=== PATIENT | male | born 1990 | race Caucasian/White ===

== ENCOUNTER 2020-01-31 21:57 | Emergency (ER) | payer OTHER ==
[~2020-01-31] VITALS: Ht 160 cm; Wt 68.0 kg
[2020-01-31] MEDS ORDERED: PANTOPRAZOLE SO40 MG ORAL (22:11)
[2020-01-31] MEDS ORDERED: AMLODIPINE BES2.5 MG ORAL (22:11)
[2020-01-31] MEDS ORDERED: FEXOFENADINE HC60 MG ORAL (22:11)
[2020-01-31] MEDS ORDERED: CLOPIDOGREL75 MG ORAL (22:11)
[2020-01-31] MEDS ORDERED: AZELASTINE137 MCG/0. NS (22:11)
--- NOTE | 2020-01-31 22:27 | Emergency Room Report ---
History of Present Illness General Chief Complaint: Abdominal Pain Source: Patient Present Illness HPI Patient is a 29-year-old male presents after increased upper abdominal pain. Reports having increased pain to his neck as well as generalized body aches and chills. Denies any vomiting or diarrhea. Reports having some constipation. Pain is primarily to the upper abdomen. denies prior surgery. States he had previously seen GI for this and was told that he should have an endoscopy performed. Denies any recent travel.Had not been having any bloody stools. Reports having some dysuria. Reports having family history of rheumatoid arthritis. 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 Allergies: Coded Allergies: No Known Allergies (Unverified , 01/31/20) COVID-19 Screening Contact w/high risk pt: No Experienced COVID-19 symptoms?: No COVID-19 Testing performed CONDOM[employer]UM PROPERTY MANAGER: No Patient History Past Medical History: see triage record Reviewed Nursing Documentation: PMH: Agreed; PSxH: Agreed Nursing Documentation-PMH Past Medical History: No Stated History Review of Systems Musculoskeletal: Reports: joint pain Skin: Reports: other - Intermittent skin color changes to the left hand for which he is taking anticoagulation Neurological: Reports: other - Cramping All Other Systems: negative except mentioned in HPI Physical Exam Vital Signs Date Time Temp Pulse Resp B/P (MAP) Pulse Ox O2 Delivery O2 Flow Rate FiO2 01/31/20 22:05 98.4 72 20 116/78 (91) 96 Room Air Sp02 EP Interpretation: reviewed, normal General Appearance: normal inspection, well appearing, no apparent distress, alert, GCS 15, non-toxic, thin Head: atraumatic ENT: normal ENT inspection, hearing grossly normal, normal voice Neck: normal inspection, full range of motion, supple, no bony tend Respiratory: normal inspection, lungs clear, normal breath sounds, no respiratory distress, no retraction, no wheezing Cardiovascular #1: regular rate, rhythm, no edema Gastrointestinal: normal inspection, normal bowel sounds, soft, no guarding, no hernia, tenderness - epiGastric tenderness Genitourinary: no CVA tenderness Musculoskeletal: normal inspection, back normal, normal range of motion Neurologic: alert, motor strength/tone normal, multiple resaw operator III-XII nml as tested, oriented x3, responsive, speech normal, normal inspection Psychiatric: normal inspection, judgement/insight normal, mood/affect normal Medical Decision Making Diagnostic Impression: Primary Impression: Hypokalemia Additional Impression: Nonspecific abdominal pain ER Course Patient presented for abdominal pain. Differential diagnosis include was not limited to pancreatitis, gastritis, colitis, peptic ulcer disease among others. Because of complexity of patient's case laboratory tests and imaging studies were ordered. Patient was noted to have some significant tenderness to the epigastric area. Laboratory testing did show some evidence of hypokalemia. CT of the abdomen pelvis was ordered with IV contrast. Patient refused CT imaging. Patient was advised that this may lead to delated diagnosis of certain abdominal problems. Patient states he will follow-up for endoscopy and has previously been advised to have endoscopy in the past. Patient was given a GI cocktail with some improvement in symptoms he was also given oral potassium. Patient was advised to return if he felt worse or had any worsening of condition. He is advised to follow-up with his primary care physician in 1 to 2 days for recheck. Patient states he had a negative coronavirus test recently. Does not appear to have evidence of coronavirus at this time. Does not have any evidence of focal weakness. Labs Test 01/31/20 22:25 White Blood Count 5.4 K/UL (4.8-10.8) Red Blood Count 4.95 M/UL (4.70-6.10) Hemoglobin 15.8 G/DL (14.2-18.0) Hematocrit 44.3 % (42.0-52.0) Mean Corpuscular Volume 90 FL (80-99) Mean Corpuscular Hemoglobin 31.9 PG (27.0-31.0) Mean Corpuscular Hemoglobin Concent 35.6 G/DL (32.0-36.0) Red Cell Distribution Width 11.3 % (11.6-14.8) Platelet Count 219 K/UL (150-450) Mean Platelet Volume 8.0 FL (6.5-10.1) Neutrophils (%) (Auto) 35.1 % (45.0-75.0) Lymphocytes (%) (Auto) 52.9 % (20.0-45.0) Monocytes (%) (Auto) 8.5 % (1.0-10.0) Eosinophils (%) (Auto) 1.8 % (0.0-3.0) Basophils (%) (Auto) 1.7 % (0.0-2.0) Sodium Level 141 MMOL/L (136-145) Potassium Level 3.1 MMOL/L (3.5-5.1) Chloride Level 105 MMOL/L (98-107) Carbon Dioxide Level 29 MMOL/L (21-32) Anion Gap 7 mmol/L (5-15) Blood Urea Nitrogen 10 mg/dL (7-18) Creatinine 1.2 MG/DL (0.55-1.30) Estimat Glomerular Filtration Rate > 60 mL/min (>60) Glucose Level 77 MG/DL (74-106) Calcium Level 8.8 MG/DL (8.5-10.1) Magnesium Level 2.2 MG/DL (1.8-2.4) Total Bilirubin 0.9 MG/DL (0.2-1.0) Aspartate Amino Transf (AST/SGOT) 20 U/L (15-37) Alanine Aminotransferase (ALT/SGPT) 42 U/L (12-78) Alkaline Phosphatase 69 U/L (46-116) C-Reactive Protein, Quantitative < 0.4 mg/dL (0.00-0.90) Total Protein 7.2 G/DL (6.4-8.2) Albumin 4.4 G/DL (3.4-5.0) Globulin 2.8 g/dL Albumin/Globulin Ratio 1.6 (1.0-2.7) Lipase 156 U/L (73-393) Thyroid Stimulating Hormone (TSH) 1.363 uiU/mL (0.358-3.740) Last Vital Signs Date Time Temp Pulse Resp B/P (MAP) Pulse Ox O2 Delivery O2 Flow Rate FiO2 01/31/20 22:05 98.4 72 20 116/78 (91) 96 Room Air Status: improved Disposition: HOME, SELF-CARE Condition: Stable Scripts Diclofenac Sodium (VOLTAREN) 100 Gm Gel..gram. 5 GM TP DAILY, #100 GM Prov: Iván Palacio MD 02/01/20 Dicyclomine Hcl* (DICYCLOMINE HCL*) 10 Mg Capsule 10 MG ORAL QID, #20 CAP Prov: Iván Palacio MD 02/01/20 Referrals: [facility],REFERRING (PCP) Iván Palacio MD Jan 31, 2020 22:27
[2020-01-31] MEDS ORDERED: Omnipaque-300 100ml vial INJ PRN (22:30)
[2020-01-31] MEDS ORDERED: Dicyclomine HCl 10mg/5ml oral soln ORAL ONE (22:30)
[2020-01-31 22:37] LABS: BASOPHILS % (AUTO) 1.7 % (0.0-2.0); EOSINOPHILS % (AUTO) 1.8 % (0.0-3.0); HEMATOCRIT 44.3 % (42.0-52.0); HEMOGLOBIN 15.8 G/DL (14.2-18.0); LYMPHOCYTES % (AUTO) 52.9 % (20.0-45.0); MEAN CORPUSCULAR VOLUME 90 FL (80-99); MONOCYTES % (AUTO) 8.5 % (1.0-10.0); NEUTROPHILS % (AUTO) 35.1 % (45.0-75.0); PLATELET COUNT 219 K/UL (150-450); RED BLOOD COUNT 4.95 M/UL (4.70-6.10); RED CELL DISTRIBUTION WIDTH 11.3 % (11.6-14.8); WHITE BLOOD COUNT 5.4 K/UL (4.8-10.8)
[2020-01-31 22:48] VITALS: BP 116/78
[2020-01-31 22:56] LABS: ANION GAP 7 mmol/L (5-15); BLOOD UREA NITROGEN 10 mg/dL (7-18); CALCIUM 8.8 MG/DL (8.5-10.1); CARBON DIOXIDE 29 MMOL/L (21-32); CHLORIDE 105 MMOL/L (98-107); CREATININE 1.2 MG/DL (0.55-1.30); POTASSIUM 3.1 MMOL/L (3.5-5.1); SODIUM 141 MMOL/L (136-145)
[2020-01-31 23:08] LABS: ALANINE AMINOTRANSFERASE 42 U/L (12-78); ALBUMIN 4.4 G/DL (3.4-5.0); ALBUMIN/GLOBULIN RATIO 1.6 (1.0-2.7); ALKALINE PHOSPHATASE 69 U/L (46-116); ASPARTATE AMINO TRANSFERASE 20 U/L (15-37); BILIRUBIN,TOTAL 0.9 MG/DL (0.2-1.0)
[2020-02-01] MEDS ORDERED: DICYCLOMINE HCL10 MG ORAL (00:03)
[2020-02-01] MEDS ORDERED: VOLTAREN100 G1 TP (00:05)
[2020-02-01 00:14] VITALS: BP 118/80
== END 2020-02-01 00:14 | disposition home or self-care (01) ==
LOC: EMR 22:18
DX: R10.10 Upper abdominal pain, unspecified (principal); E87.6 Hypokalemia; M54.2 Cervicalgia; K59.00 Constipation, unspecified; R30.0 Dysuria; Z79.01 Long term (current) use of anticoagulants
CPT/HCPCS: 36415; 80053; 83690; 83735; 84443; 85025; 86140; 99283; J8499

== ENCOUNTER 2020-02-01 08:59 | Emergency (ER) | payer OTHER ==
[~2020-02-01] VITALS: Ht 177.8 cm; Wt 59.0 kg
[~2020-02-01 08:59] MED LIST: AMLODIPINE BES2.5 MG ORAL; AZELASTINE137 MCG/0. NS; CLOPIDOGREL75 MG ORAL; DICYCLOMINE HCL10 MG ORAL; FEXOFENADINE HC60 MG ORAL; PANTOPRAZOLE SO40 MG ORAL; VOLTAREN100 G1 TP
[2020-02-01 09:20] VITALS: BP 120/80
[2020-02-01] MEDS ORDERED: Mylanta II UD 30ml ORAL ONE (09:30)
[2020-02-01] MEDS ORDERED: Lidocaine 2% Visc 15ml soln ORAL ONE (09:30)
[2020-02-01 09:52] LABS: APPEARANCE,URINE CLEAR; BASOPHILS % (AUTO) 1.9 % (0.0-2.0); BILIRUBIN, URINE NEGATIVE (NEGATIVE); EOSINOPHILS % (AUTO) 2.3 % (0.0-3.0); GLUCOSE, URINE (UA) NEGATIVE (NEGATIVE); HEMATOCRIT 44.4 % (42.0-52.0); HEMOGLOBIN 15.4 G/DL (14.2-18.0); KETONES,URINE 1+ (NEGATIVE); LEUKOCYTE ESTERASE ,URINE 1+ (NEGATIVE); LYMPHOCYTES % (AUTO) 36.3 % (20.0-45.0); MEAN CORPUSCULAR VOLUME 91 FL (80-99); MONOCYTES % (AUTO) 9.2 % (1.0-10.0); NEUTROPHILS % (AUTO) 50.4 % (45.0-75.0); NITRITE,URINE NEGATIVE (NEGATIVE); PH,URINE 5 (4.5-8.0); PLATELET COUNT 208 K/UL (150-450); PROTEIN,URINE 2+ (NEGATIVE); UROBILINOGEN,URINE 1 MG/DL (0.0-1.0); WHITE BLOOD COUNT 4.2 K/UL (4.8-10.8)
[2020-02-01 09:53] LABS: COLOR,URINE YELLOW
[2020-02-01 10:00] LABS: ANION GAP 6 mmol/L (5-15); BLOOD UREA NITROGEN 12 mg/dL (7-18); CALCIUM 9.2 MG/DL (8.5-10.1); CARBON DIOXIDE 31 MMOL/L (21-32); CHLORIDE 104 MMOL/L (98-107); CREATININE 1.2 MG/DL (0.55-1.30); POTASSIUM 3.8 MMOL/L (3.5-5.1); SODIUM 140 MMOL/L (136-145)
[2020-02-01] MEDS ORDERED: Nitroglycerin 2% oint pkt TOPIC ONE (10:00)
[2020-02-01] MEDS ORDERED: Nitroglycerin Subl 0.4mg tab SL PRN (10:00)
[2020-02-01 10:02] LABS: INR 1.1 (0.9-1.1)
--- NOTE | 2020-02-01 10:04 | Emergency Room Report ---
History of Present Illness General Chief Complaint: Chest Pain Source: Patient Present Illness HPI Patient was seen last night for epigastric pain. He was worked up with CT of the abdomen and labs. He did not have any pain in his throat or chest at that time. The patient was awakened at 8 with pain with swallowing in his throat and also in his chest. The pain is nonexertional. When he woke up the pain was 10/10. Currently the pain is 8/10. The pain is somewhat burning and pressure. The patient denies any family history, smoking, diabetes. He has been treated with Plavix and amlodipine for some problem involving numbness in his hands. Further hx in [facility]. No fevers, chills, palpitations, nausea, vomiting, diarrhea, dysuria, shortness of breath, joint pain, rashes, visual changes, dizziness, headache. The patient is anxious about what is going on. He is planning on leaving for [place] tomorrow at 7 AM to undergo medical evaluation. This is the history from the previous presentation: Is a 29-year-old male presents after increased upper abdominal pain. Reports having increased pain to his neck as well as generalized body aches and chills. Denies any vomiting or diarrhea. Reports having some constipation. Pain is primarily to the upper abdomen. denies prior surgery. States he had previously seen GI for this and was told that he should have an endoscopy performed. Denies any recent travel.Had not been having any bloody stools. Reports having some dysuria. Reports having family history of rheumatoid arthritis. 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 Allergies: Coded Allergies: No Known Allergies (Unverified , 01/31/20) COVID-19 Screening Contact w/high risk pt: No Experienced COVID-19 symptoms?: No COVID-19 Testing performed MULTIMEDIA DESIGNER: No Patient History Past Medical History: see triage record, old chart reviewed Social History: Denies: smoking, alcohol use, drug use Social History Narrative from [place] Reviewed Nursing Documentation: PMH: Agreed; PSxH: Agreed Nursing Documentation-PMH Past Medical History: No History, Except For Review of Systems All Other Systems: negative except mentioned in HPI Physical Exam Vital Signs Date Time Temp Pulse Resp B/P (MAP) Pulse Ox O2 Delivery O2 Flow Rate FiO2 02/01/20 09:10 98.1 78 16 120/80 (93) 97 Room Air Sp02 EP Interpretation: reviewed, normal General Appearance: well appearing, no apparent distress, GCS 15 Head: normocephalic Eyes: bilateral eye normal inspection, bilateral eye PERRL, bilateral eye EOMI ENT: moist mucus membranes Neck: supple Respiratory: lungs clear, normal breath sounds Cardiovascular #1: regular rate, rhythm Cardiovascular #2: 2+ radial (R) Gastrointestinal: normal inspection, normal bowel sounds, non tender, no mass, non-distended Musculoskeletal: back normal, normal range of motion, gait/station normal Neurologic: alert, oriented x3, grossly normal Psychiatric: anxious Skin: no rash, warm/dry Procedures Critical Care Time Critical Care Time Total Critical Care Time: 60 min bedside evaluation and treatment excludes procedures (EKG). Reason for critical care: Chest pain with alleged STEMI, consultation with [facility] , repeat evaluations, discussion with patient and family, discussion with transferring EMS unit Possible complications: hypotension, hypertension, RI, shock, arrhythmias, metabolic acidosis, end organ damage, respiratory failure. Interventions: Aspirin, nitroglycerin, Mylanta, viscous lidocaine, repeat evaluations, consultation with [facility], discussion with patient and family Course: Patient presented with atypical history of chest pain after evaluation for abdominal pain. EKG read STEMI. My interpretation is that this is J-point elevation or pericarditis however EKG sent to [facility]. Discussion with 2 fellows. Treatment reviewed and nitroglycerin administered. Repeat EKG evaluated. Reevaluation of pain. Discussion with [facility] and acceptance for possible catheterization. Discussion with patient. Discussion with family member who is a physician. Metoprolol ordered. Discussed with transferring EMS unit. Consultations: nursing staff, EMS, family, [facility], transferring EMS unit Performed by: Dr. Tobar Tolerated well condition = serious Medical Decision Making Diagnostic Impression: Primary Impression: Chest pain Qualified Codes: R07.9 - Chest pain, unspecified Additional Impression: Abnormal EKG ER Course Patient presents with throat and chest pain. Gastritis, myocardial injury, pericarditis, pancreatitis, GERD, esophageal spasm, Prinzmetal angina amongst others. Evaluation with EKG, chest X ray and labs. Treat patient treated with aspirin and Mylanta and viscous lidocaine. Patient placed on nail maker. EKG with allegedly STEMI however there is ST elevation there are multiple leads suggesting more of either pericarditis or J-point elevation. EKG sent to [facility]. Discussed with [facility] fellow at 945 (and again at950 with a second fellow). Plan to give nitroglycerin and repeat EKG and evaluate troponin. Second EKG unchanged however pain now 2 over 1:10 nitroglycerin. Patient refusing to take more nitroglycerin. Initial troponin negative. Of note potassium corrected. Second EKG reviewed by [facility] and discussion with them that they want to take the patient as a STEMI patient at 1055. Metoprolol ordered for patient. In discussing with patient, he states "they told me the same 6 months ago" but no studies done. They were considering pericarditis versus acute myocardial infarction. Initially is reluctant to go to [facility]. Discussed the importance with patient of evaluation. Patient talking with family member who is a physician in [place]. [facility] here and patient presented to paramedics involved in transfer in great detail. Patient pain improved and patient transferred to [facility] emergently. Laboratory Tests Test 02/01/20 09:43 White Blood Count 4.2 K/UL (4.8-10.8) L Red Blood Count 4.90 M/UL (4.70-6.10) Hemoglobin 15.4 G/DL (14.2-18.0) Hematocrit 44.4 % (42.0-52.0) Mean Corpuscular Volume 91 FL (80-99) Mean Corpuscular Hemoglobin 31.4 PG (27.0-31.0) H Mean Corpuscular Hemoglobin Concent 34.6 G/DL (32.0-36.0) Red Cell Distribution Width 11.0 % (11.6-14.8) L Platelet Count 208 K/UL (150-450) Mean Platelet Volume 7.1 FL (6.5-10.1) Neutrophils (%) (Auto) 50.4 % (45.0-75.0) Lymphocytes (%) (Auto) 36.3 % (20.0-45.0) Monocytes (%) (Auto) 9.2 % (1.0-10.0) Eosinophils (%) (Auto) 2.3 % (0.0-3.0) Basophils (%) (Auto) 1.9 % (0.0-2.0) Prothrombin Time 12.4 SEC (9.30-11.50) H Prothrombin Time INR 1.1 (0.9-1.1) Activated Partial Thromboplast Time 27 SEC (23-33) Urine Color Yellow Urine Appearance Clear Urine pH 5 (4.5-8.0) Urine Specific [place] 1.025 (1.005-1.035) Urine Protein 2+ (NEGATIVE) H Urine Glucose (UA) Negative (NEGATIVE) Urine Ketones 1+ (NEGATIVE) H Urine Blood Negative (NEGATIVE) Urine Nitrite Negative (NEGATIVE) Urine Bilirubin Negative (NEGATIVE) Urine Urobilinogen 1 MG/DL (0.0-1.0) H Urine Leukocyte Esterase 1+ (NEGATIVE) H Urine RBC 0 /HPF (0 - 0) Urine WBC 2-4 /HPF (0 - 0) Urine Squamous Epithelial Cells Occasional /LPF Urine Bacteria Occasional /HPF (NONE) Urine Mucus Many /LPF (NONE/OCC) H Sodium Level 140 MMOL/L (136-145) Potassium Level 3.8 MMOL/L (3.5-5.1) Chloride Level 104 MMOL/L (98-107) Carbon Dioxide Level 31 MMOL/L (21-32) Anion Gap 6 mmol/L (5-15) Blood Urea Nitrogen 12 mg/dL (7-18) Creatinine 1.2 MG/DL (0.55-1.30) Estimated Glomerular Filtration Rate > 60 mL/min (>60) Glucose Level 110 MG/DL (74-106) H Calcium Level 9.2 MG/DL (8.5-10.1) Total Bilirubin 1.0 MG/DL (0.2-1.0) Aspartate Amino Transferase (AST) 18 U/L (15-37) Alanine Aminotransferase (ALT) 35 U/L (12-78) Alkaline Phosphatase 70 U/L (46-116) Total Creatine Kinase 55 U/L (26-308) Troponin I 0.000 ng/mL (0.000-0.056) Total Protein 7.1 G/DL (6.4-8.2) Albumin 4.3 G/DL (3.4-5.0) Globulin 2.8 g/dL Lipase 139 U/L (73-393) EKG Diagnostic Results Rate: normal Rhythm: NSR ST Segments: other - STEMI although diffuse ST elevation Rhythm Strip Diag. Results EP Interpretation: yes Rhythm: NSR, no PVC's, no ectopy Chest X-Ray Diagnostic Results Chest X-Ray Diagnostic Results : Chest X-Ray Ordered: Yes # of Views/Limited/Complete: 1 View Indication: Chest Pain EP Interpretation: Yes Interpretation: no consolidation, no effusion, no pneumothorax Impression: No acute disease Electronically Signed by: Electronically signed by Haroon Tobar MD Last Vital Signs Date Time Temp Pulse Resp B/P (MAP) Pulse Ox O2 Delivery O2 Flow Rate FiO2 02/01/20 11:24 98.6 79 20 112/75 98 Room Air Status: improved Disposition: SHORT-TERM HOSP Condition: Serious Referrals: NOT CHOSEN [facility]/,REFERRING (PCP) Haroon Tobar MD Feb 01, 2020 10:04
[2020-02-01 10:11] LABS: ALANINE AMINOTRANSFERASE 35 U/L (12-78); ALBUMIN 4.3 G/DL (3.4-5.0); ALKALINE PHOSPHATASE 70 U/L (46-116); ASPARTATE AMINO TRANSFERASE 18 U/L (15-37); CREATINE KINASE 55 U/L (26-308)
[2020-02-01 10:15] VITALS: BP 110/76
[2020-02-01] MEDS ORDERED: Metoprolol Tartrate 5mg/5ml Inj IVP STA (10:53)
[2020-02-01 10:55] VITALS: BP 106/77
[2020-02-01] MEDS ORDERED: Sodium Chloride 550 ML IV SCH (11:15)
[2020-02-01 11:24] VITALS: BP 112/75
--- NOTE | 2020-02-01 12:39 | Diagnostic Imaging Report ---
Procedure: XRAY Chest 1v Reason for study: Chest pain Comparison films: None. FINDINGS: A single one view chest is obtained. Vascularity is normal. The lung [place]ley are clear bilaterally. Cardiac and mediastinal silhouette are within normal limits. CP angles are sharp. The bony thorax appear unremarkable. IMPRESSION: NO ACUTE CARDIOPULMONARY DISEASE.
== END 2020-02-01 11:24 | disposition short-term general hospital (02) ==
LOC: EMR 09:30
DX: R07.9 Chest pain, unspecified (principal); R94.31 Abnormal electrocardiogram [ECG] [EKG]; R07.0 Pain in throat
CPT/HCPCS: 36415; 71045; 80053; 81003; 82550; 83690; 84484; 85025; 85610; 85730; 93005; 96361; 96374; 96375; 99291; J7040; S0028; 99284